=== PATIENT | female | born 1965 | race Caucasian/White ===

== ENCOUNTER → 2023-03-18 06:24 | Day surgery (SDC) | payer BC, SELFPAY | LOC: GI 06:24 | PROVIDERS: ATTENDING PHYSICIAN Internal Medicine Gastroenterology | DX: K31.89 Other diseases of stomach and duodenum (principal); K29.50 Unspecified chronic gastritis without bleeding; K31.A0 Gastric intestinal metaplasia, unspecified; K20.0 Eosinophilic esophagitis; Z09 Encounter for follow-up examination after completed treatment for conditions other than malignant neoplasm | CPT/HCPCS: 43239; 88305; 88342 ==

== ENCOUNTER → 2023-03-21 13:16 | Outpatient (REF) | payer BC, SELFPAY | LOC: RAD 13:16 | PROVIDERS: ATTENDING PHYSICIAN Internal Medicine Gastroenterology; FAMILY PHYSICIAN Family Medicine | DX: R19.7 Diarrhea, unspecified (principal) | CPT/HCPCS: 74177; Q9967 ==

== ENCOUNTER 2023-05-03 09:11 | Emergency (ER) | payer BC, SELFPAY ==
[2023-05-03 09:30] VITALS: BP 168/79
[2023-05-03 10:12] VITALS: BP 165/82
[2023-05-03 10:22] VITALS: BMI 26.0
--- NOTE | 2023-05-03 10:32 | ED.GENMED ---
History of Present Illness
General
Chief Complaint: Chest Pain
Source: patient
Exam Limitations: none
Time Seen by Provider: 05/03/23 10:10
Travel History
Have you had any contact with someone who has COVID-19?: No
Do you have any symptoms of coronavirus? Fever > 100 degrees, chills, cough, shortness of breath, sore throat, loss of taste or smell, muscle aches, or headache?: No
History of Present Illness
History of Present Illness:
57-year-old otherwise healthy female presents complaining of intermittent left-sided chest pain. At times the pain is pleuritic, worse with motion or breathing or coughing. No known injury. No recent travel or surgery. No leg swelling or calf
pain. She notes at times she feels short of breath if the pain is bad. She tried Advil without relief. No other complaints at this time
Past History
Past History
ED Past Medical History: Other (Migraines)
ED Past Surgical History: Gynecological (Endometrial ablation due to cancer cells.)
Social History
Tobacco: Non-smoker (Occasional tobacco)
Alcohol: Occasional
Drug: None
Personal:
Living: with family
Employment: Employed
Family History
Family History: Other (Gallbladder disease, coronary artery disease)
Phy Exam
Physical Exam
Physical Exam:
General: Well-appearing female no acute respiratory distress
HEENT: Normocephalic atraumatic
Heart: Regular rate and rhythm
Lungs: Clear to auscultation bilaterally no wheezing
Abdomen soft nontender nondistended no guarding rebound normal bowel sounds
Extremities: No cyanosis or edema
Musculoskeletal exam: Reproducible chest pain with motion of the left arm. No tenderness to palpation
Scores
Heart Score for Chest Pain Patients
STEMI patient?: No
History: Slightly or Non-Suspicious
ECG: Normal
Age: >45 - <65 years
Risk Factors: No Risk Factors
Troponin: </= Normal Limit
Heart Score for Chest Pain Patients: 1
Heart Score Risk: 2.5% MACE over next 6 weeks
Course
Orders/Labs/Results
Orders:
Orders
05/03/23 09:22
Electrocardiogram (*1) Urgent
Reason for Study: Chest Pain
EKG- Treatment ONCE
05/03/23 10:18
CR Chest - 2 Views Urgent
Comment:
Reason For Exam: chest pain
05/03/23 10:25
Complete Blood Count/With Diff Urgent
Comprehensive Metabolic Panel Urgent
D-Dimer Urgent
Troponin I Urgent
05/03/23 11:34
CT Chest Pe Study Urgent
Comment:
Reason For Exam: left chest wall pain,
05/03/23 12:04
Ketorolac [Toradol] 15 mg IV NOW STA
Abnormal Lab Results
05/03/23
10:25
Lymphocytes % 19.5 L %
(20.5-51.1)
D-Dimer 0.62 H ug/mlFEU
(0.00-0.50)
Chloride 108 H mmol/L
(98-107)
Creatinine 0.5 L mg/dL
(0.6-1.0)
Glucose 107 H mg/dl
(70-99)
05/03/23 10:25
05/03/23 10:25
Vital Signs
Initial and Last Documented VS:
Initial Vital Signs
Temp Pulse Resp BP Pulse Ox
98.1 F 76 20 168/79 97
05/03/23 09:30 05/03/23 09:30 05/03/23 09:30 05/03/23 09:30 05/03/23 09:30
Last Documented Vital Signs
Temp Pulse Resp BP Pulse Ox
98.1 F 57 21 142/66 97
05/03/23 09:30 05/03/23 13:30 05/03/23 12:00 05/03/23 13:00 05/03/23 09:30
MDM/Problems Addressed
Differential Diagnosis Includes:
Chest pain. Consider ACS versus PE. Given reproduction of pain with motion or coughing suspect possible chest wall discomfort. Will check cardiac enzymes including D-dimer. X-ray pending.
*Critical Care Note
Total Time (30-74mins, 75-104mins- exclusive of procedures): Not Applicable
Update Note
Update Note:
Workup here demonstrates normal chest x-ray but D-dimer was slightly elevated. Given the pleuritic component of the pain CT of the chest was ordered which is negative for PE but does show nondisplaced left anterior lateral rib fracture on the third
rib. This would explain her pain. Will prescribe a muscle relaxer for her. Return precautions were given stable for discharge
ED Attending Note
-
Portions of this chart may have been created with voice recognition software.� Occasional wrong word or��sound alike� substitutions may have occurred due to the inherent limitations of voice recognition software.
Discharge Plan
Departure
Patient Disposition: Home (Routine Discharge)
Date of Disposition: 05/03/23
Time of Disposition: 14:11
Patient with high blood pressure during this ER visit?: No
Discharge Problem:
Fracture, rib
Prescriptions:
New
cyclobenzaprine 10 mg tablet
10 mg PO TID PRN (Reason: muscle spasm) Qty: 10 0RF
No Action
cyanocobalamin (vitamin B-12) 1,000 MCG tablet
1,000 mcg PO DAILY
vitamin E (dl, acetate) 400 UNITS capsule
400 units PO DAILY
omeprazole 40 MG capsule,delayed release(DR/EC)
40 mg PO BID
Vitamin D
1 tab PO DAILY
promethazine 25 mg tablet
25 mg PO QID PRN (Reason: nausea and vomiting) Qty: 10 0RF
Referrals:
Aleksandar Rojas, [Family Provider] -
Activity Restrictions/Additional Instructions:
Continue with ibuprofen 600 mg every 6 or 8 hours. Use Tylenol in between doses if needed. Use muscle relaxer as needed for spasm. Return here for increasing pain shortness of breath fever otherwise follow-up with family doctor. Avoid heavy
lifting or twisting activity
Interventions
Interventions:
*Risk Screen - Suicide Last Done: 05/03/23 10:22
*General Assessment Last Done: 05/03/23 10:22
*Neglect/Abuse Screening Last Done: 05/03/23 10:22
ED- Fall Risk Assessment Last Done: 05/03/23 10:22
*ED COVID-19 Vaccine History Last Done: 05/03/23 10:16
ED- Cardiac Assessment Last Done: 05/03/23 10:22
[2023-05-03 10:50] LABS: % Basophils 0.5 % (0-2); % Eosinophils 2.1 % (0-6); % Immature Granulocytes 0.4 % (0-0.5); % Lymphocytes 19.5 % (20.5-51.1); % Monocytes 6.5 % (1.7-9.3); Absolute Eosinophils 0.2 10^3/uL (0-0.7); Absolute Lymphocytes 1.5 10^3/uL (1.2-3.4); Absolute Monocytes 0.5 10^3/uL (0.1-0.6); Absolute Neutrophils 5.5 10^3/uL (1.4-6.5); Hematocrit 41.7 % (37.0-47.0); Hemoglobin 14.1 g/dL (12.0-16.0); Mean Corp Hgb Conc. 33.8 g/dL (33.0-37.0); Mean Corpuscular Hgb 30.4 pg (27.0-31.0); Mean Corpuscular Volume 89.9 fL (81.0-99.0); Mean Platelet Volume 10.4 fL (7.4-10.4); Nucleated Red Blood Cells % 0 %; Platelet Count 232 10^3/uL (130-400); Red Blood Cell Count 4.64 10^6/uL (4.20-5.40); Red Cell Dist. Width 12.3 % (11.5-14.5); White Blood Cell Count 7.8 10^3/uL (4.8-10.8)
[2023-05-03 10:58] LABS: D-Dimer 0.62 ug/mlFEU (0.00-0.50)
[2023-05-03 11:00] LABS: ALT (SGPT) 18 U/L (0-35); AST (SGOT) 22 U/L (14-36); Albumin 4.1 g/dl (3.5-5.0); Alkaline Phosphatase 113 U/L (38-126); Blood Urea Nitrogen 12 mg/dl (7-17); Calcium 9.5 mg/dl (8.4-10.2); Carbon Dioxide 25 mmol/L (22-30); Chloride 108 mmol/L (98-107); Estimated Creatinine Clearance 95 ml/min; Glucose 107 mg/dl (70-99); Potassium 4.2 mmol/L (3.5-5.1); Sodium 135 mmol/L (135-145); Total Bilirubin 0.8 mg/dl (0.2-1.3); Total Protein 6.9 g/dl (6.3-8.2); eGFR > 60.00
[2023-05-03 11:11] LABS: Troponin I < 0.012 ng/ml
[2023-05-03 11:31] VITALS: BP 160/80
[2023-05-03 12:00] VITALS: BP 140/67
[2023-05-03] MEDS: TORADOL 15 MG IV (12:22)
[2023-05-03 13:00] VITALS: BP 142/66
== END 2023-05-03 14:46 | disposition home or self-care (01) ==
LOC: EMR 09:11
PROVIDERS: Physician Assistant; EMERGENCY PHYSICIAN Emergency Medicine; FAMILY PHYSICIAN Family Medicine
DX: S22.32XA Fracture of one rib, left side, initial encounter for closed fracture (principal); X58.XXXA Exposure to other specified factors, initial encounter
CPT/HCPCS: 99285; 96374; 71046; 71275; 80053; 84484; 85025; 85379; 93005; Q9967

== ENCOUNTER 2024-01-23 19:57 | Observation (INO) | payer BC, SELFPAY ==
--- NOTE | 2024-01-23 11:35 | ED.GENMED ---
ED Provider Triage
<Ritika Argueta NP - Last Filed: 01/23/24 11:47>
-
Patient seen by provider in Triage?: Seen in Triage
Attestation: A medical screening examination has been initiated by a qualified medical provider. Based on the assessment performed at this time, it has been determined that an emergent medical condition may exist and the patient has been informed
that further medical evaluation and possible additional diagnostic testing may be needed.
HPI: 58-year-old female sent here at recommendation of her PCP Dr. Rojas. 'I am sluggish, alfredo feel off.' Had episode of colorful flashing lights both eyes at 9 a.m. lasting 30 minutes. With residualy 'minimum pain' in the back of her head.
Took BP and was 168/73. Has similar flashings for only a second with previous migraine 2 yrs ago. She states her head feels 'Off', had visual changes (seeing colors), fatigue, back of head painful, head feels heavy. Feels nauseous, no vomiting.
Denies weakness, numbness in extremities
No recent trauma/fall.
GENERAL: Alert , in no apparent distress
EYE: No visual abnormalities.
NECK: Trachea midline
ENT: No visible abnormalities.
LUNGS: No acute respiratory distress
NEUROLOGICAL: Alert and oriented
SKIN: Skin intact. No visible changes.
MUSCULOSKELETAL: Moving extremities normally
PSYCH: Normal and appropriate interaction.
This is a medical evaluation conducted in person to initiate diagnostic evaluation and provide initial therapeutics. Please see further documentation by the treating clinician.
History of Present Illness
<Ritika Argueta NP - Last Filed: 01/23/24 11:47>
General
Chief Complaint: Visual Problem
Time Seen by Provider: 01/23/24 13:17
<Nova Giles PA-C - Last Filed: 01/24/24 13:05>
General
Source: patient
Exam Limitations: none
Nursing documentation reviewed up to this point in time: agreed with
History of Present Illness
History of Present Illness:
58 y/o F
h/o migraines previously
usually has photophobia, nausea/vomitig and treats with motrin
here with vision changes:
flashing colorful lights both eyes lasting 30 minutes while pt was at rest, not under any stress or physical activity
followed by occipital dull headache / which she still has, which never became worst headache of life
but she says she feels not herself, and cannot quite explain why
she has had al ittle lightheadedness
no fever, chills, neck pain, neck manipulation, weakness, numbness, slurred speech, confusion, cp, sob
she has not tried anything for her headache
Past History
<Ritika Argueta ACCOUNT MANAGEMENT ASSISTANT - Last Filed: 01/23/24 11:47>
Past History
ED Past Medical History: Other (Migraines)
ED Past Surgical History: Gynecological (Endometrial ablation due to cancer cells.)
Social History
Tobacco: Non-smoker (Occasional tobacco)
Alcohol: Occasional
Drug: None
Personal:
Living: with family
Employment: Employed
Family History
Family History: Other (Gallbladder disease, coronary artery disease)
Review of Systems
<Nova Giles PA-C - Last Filed: 01/24/24 13:05>
Review of Systems
Allergies reviewed?: Yes
Phy Exam
<Nova Giles PA-C - Last Filed: 01/24/24 13:05>
Physical Exam
Physical Exam:
GENERAL: Alert , in no apparent distress
HEAD: NCAT
EYE: pupils equal and reactive, no nystagmus, no photophobia
NECK: Supple,full rom, nontender
ENT: o/p clr, mmm.
CARDIAC: Regular rate and rhythm . no edema
LUNGS: Clear breath sounds bilaterally, no acute respiratory distress, no wheezes/rales/rhonchi
ABDOMEN: Soft, without focal tenderness, no r/g, no cvat
NEUROLOGICAL: Alert and orientedx 4, cn intact, no facial asymmetry, 5/5 strength in UE/LE, sensation intact, romberg neg, ambulates without assistance, neg pronator drift
reporting double vision with downward gaze
SKIN: Warm and dry, skin intact.
MUSCULOSKELETAL: No edema, well perfused.
PSYCH: Normal and appropriate interaction.
Course
<Ritika Argueta, ACCOUNT MANAGEMENT ASSISTANT - Last Filed: 01/23/24 11:47>
Orders/Labs/Results
Orders:
Orders
01/23/24 11:42
CT Head W/o Iv Contrast Urgent
Comment:
Reason For Exam: head feel 'off' flashing lights in vision
01/23/24 11:52
Complete Blood Count/With Diff Urgent
01/23/24 13:35
Diphenhydramine [Benadryl] 25 mg IV NOW STA
Metoclopramide [Reglan] 10 mg IV NOW STA
01/23/24 13:57
NEUROLOGY CONSULT Urgent
Consulting Provider: Lexi Minor
Was physician already notified: Yes
01/23/24 14:37
C-Reactive Protein Urgent
Comment: ADD ON
Comprehensive Metabolic Panel Urgent
Magnesium Urgent
Comment: ADD ON
TSH Reflex To Free T4 Urgent
Comment: ADD ON
01/23/24 Dinner
Regular
At Your Request: Full Participation
Does patient need a safe tray?: No
01/23/24 18:03
Lorazepam [Ativan] 2 mg PO ONCE PRN PRN
01/23/24 18:23
Add On- LAB Routine
Tests Added?: CPR, ESR, Magnesium, TSH reflex to free T4
01/23/24 19:36
Admit/Transfer Patient As Directed
Co-Sign Provider:
Level of Care: Observation services
Assign to:: Telemetry
Physician / Group: low scherer
Diagnosis: diplopia with h/a an aura concern migraine h/a vs cva/Tia
Reason for Telemetry: CVA/TIA
Date to Stop Telemetry: 01/26/24
Time to Stop Telemetry: 11:00
Reason for Hospitalization: diplopia with h/a an aura concern migraine h/a vs cva/Tia
Code Status As Directed
Resuscitation Status: Full Code
01/23/24 19:38
PRN Pain Medication Management As Directed
May give lesser potent ordered pain med per pt: Yes
preference::
Protocol:: Medication orders for pain may be administered in a
manner that supports deferring to patient preference
when the pt is:
- Requesting an ordered lesser potent pain medication.
Least to most potent pain medications are defined
as: acetaminophen < NSAID < tramadol < opioids
(morphine, oxycodone, hydromorphone).
- Requesting a lesser dose of the same medication IF
ORDERED.
- Requesting a less intrusive route of administration
if both routes are prescribed by the provider (PO <
IV).
01/23/24 21:08
Acetaminophen [Tylenol] 650 mg PO Q4HPRN PRN
Diphenhydramine [Benadryl] 25 mg IV Q4HPRN PRN
Ondansetron Injectable [Zofran] 4 mg IV Q6HPRN PRN
01/23/24 21:08
Activity As Directed
Activity Level: As Tolerated
Pneumatic Compression Sleeves As Directed
Type: Knee high
Vital Signs As Directed
Frequency: Per unit guidelines
Ot Eval And Treat Routine
Pt Eval And Treat Routine
Activity Level: As Tolerated
DX Deep Vein Thrombosis Video Routine
01/24/24 06:27
Cardiovascular Evaluation IN AM
01/24/24 07:40
MR Brain Without Contrast Routine
Reason For Exam: diplopia
OK for patient to be off Cardiac Monitoring for MRI: No
Recent pill cam endoscopy?: No
01/24/24 08:00
Cholecalciferol (Vitamin D3) [VITAMIN D3 (cholecalciferol)] 125 mcg PO DAILY
Cyanocobalamin [Vitamin B-12] 1,000 mcg PO DAILY
Pantoprazole [Protonix] 40 mg PO DAILY
01/26/24 11:00
DC Protocol for Telemetry ONCE
01/23/24 11:52
01/23/24 14:37
Vital Signs
Initial and Last Documented VS:
Initial Vital Signs
Temp Pulse Resp BP Pulse Ox
36.7 C 69 20 165/95 98
01/23/24 11:37 01/23/24 11:37 01/23/24 11:37 01/23/24 11:37 01/23/24 11:37
Last Documented Vital Signs
Temp Pulse Resp BP Pulse Ox
36.6 C 68 18 116/66 94
01/24/24 11:47 01/24/24 11:47 01/24/24 11:47 01/24/24 11:47 01/24/24 11:47
<Nova Giles PA-C - Last Filed: 01/24/24 13:05>
Orders/Labs/Results
Orders:
Orders
01/23/24 11:42
CT Head W/o Iv Contrast Urgent
Comment:
Reason For Exam: head feel 'off' flashing lights in vision
01/23/24 11:52
Complete Blood Count/With Diff Urgent
01/23/24 13:35
Diphenhydramine [Benadryl] 25 mg IV NOW STA
Metoclopramide [Reglan] 10 mg IV NOW STA
01/23/24 13:57
NEUROLOGY CONSULT Urgent
Consulting Provider: Lexi Minor
Was physician already notified: Yes
01/23/24 14:37
C-Reactive Protein Urgent
Comment: ADD ON
Comprehensive Metabolic Panel Urgent
Magnesium Urgent
Comment: ADD ON
TSH Reflex To Free T4 Urgent
Comment: ADD ON
01/23/24 Dinner
Regular
At Your Request: Full Participation
Does patient need a safe tray?: No
01/23/24 18:03
Lorazepam [Ativan] 2 mg PO ONCE PRN PRN
01/23/24 18:23
Add On- LAB Routine
Tests Added?: CPR, ESR, Magnesium, TSH reflex to free T4
01/23/24 19:36
Admit/Transfer Patient As Directed
Co-Sign Provider:
Level of Care: Observation services
Assign to:: Telemetry
Physician / Group: low scherer
Diagnosis: diplopia with h/a an aura concern migraine h/a vs cva/Tia
Reason for Telemetry: CVA/TIA
Date to Stop Telemetry: 01/26/24
Time to Stop Telemetry: 11:00
Reason for Hospitalization: diplopia with h/a an aura concern migraine h/a vs cva/Tia
Code Status As Directed
Resuscitation Status: Full Code
01/23/24 19:38
PRN Pain Medication Management As Directed
May give lesser potent ordered pain med per pt: Yes
preference::
Protocol:: Medication orders for pain may be administered in a
manner that supports deferring to patient preference
when the pt is:
- Requesting an ordered lesser potent pain medication.
Least to most potent pain medications are defined
as: acetaminophen < NSAID < tramadol < opioids
(morphine, oxycodone, hydromorphone).
- Requesting a lesser dose of the same medication IF
ORDERED.
- Requesting a less intrusive route of administration
if both routes are prescribed by the provider (PO <
IV).
01/23/24 21:08
Acetaminophen [Tylenol] 650 mg PO Q4HPRN PRN
Diphenhydramine [Benadryl] 25 mg IV Q4HPRN PRN
Ondansetron Injectable [Zofran] 4 mg IV Q6HPRN PRN
01/23/24 21:08
Activity As Directed
Activity Level: As Tolerated
Pneumatic Compression Sleeves As Directed
Type: Knee high
Vital Signs As Directed
Frequency: Per unit guidelines
Ot Eval And Treat Routine
Pt Eval And Treat Routine
Activity Level: As Tolerated
DX Deep Vein Thrombosis Video Routine
01/24/24 06:27
Cardiovascular Evaluation IN AM
01/24/24 07:40
MR Brain Without Contrast Routine
Reason For Exam: diplopia
OK for patient to be off Cardiac Monitoring for MRI: No
Recent pill cam endoscopy?: No
01/24/24 08:00
Cholecalciferol (Vitamin D3) [VITAMIN D3 (cholecalciferol)] 125 mcg PO DAILY
Cyanocobalamin [Vitamin B-12] 1,000 mcg PO DAILY
Pantoprazole [Protonix] 40 mg PO DAILY
01/26/24 11:00
DC Protocol for Telemetry ONCE
01/23/24 11:52
01/23/24 14:37
Vital Signs
Initial and Last Documented VS:
Initial Vital Signs
Temp Pulse Resp BP Pulse Ox
36.7 C 69 20 165/95 98
01/23/24 11:37 01/23/24 11:37 01/23/24 11:37 01/23/24 11:37 01/23/24 11:37
Last Documented Vital Signs
Temp Pulse Resp BP Pulse Ox
36.6 C 68 18 116/66 94
01/24/24 11:47 01/24/24 11:47 01/24/24 11:47 01/24/24 11:47 01/24/24 11:47
<Nova Giles PA-C - Last Filed: 01/24/24 13:05>
MDM/Problems Addressed
Differential Diagnosis Includes:
stroke, occular migraine
MDM/Problems Addressed:
sumit avalos 58 y/o F
h/o reported migraines in the past
usually has photophobia, nausea/vomitig and treats with motrin
today had what sounds like scintillating scotoma at 9 am lasting about 30 minutes, flashing colorful lights both eyes
followed by occipital dull headache 03/19 which she still has
but she says she feels not herself
she reported her vision was back to normal but on my exam when i was checking EOMS and visual lujan she said she saw double when both eyes open in downward gaze; there is no reported field cut;
seems a little odd,
she had noncon head ct that was neg
givne reglan/benadryl which relieved the pain
seen by neuro and d/w ed attending
neurologist recommended admission for reported symptoms of trochlear palsy;
and will need MRI
<Nova Giles PA-C - Last Filed: 01/24/24 13:05>
*Critical Care Note
Total Time (30-74mins, 75-104mins- exclusive of procedures): Not Applicable
ED Attending Note
<Ritika Argueta ACCOUNT MANAGEMENT ASSISTANT - Last Filed: 01/23/24 11:47>
-
Portions of this chart may have been created with voice recognition software.� Occasional wrong word or��sound alike� substitutions may have occurred due to the inherent limitations of voice recognition software.
Discharge Plan
Departure
Patient Disposition: Admit
Date of Disposition: 01/23/24
Time of Disposition: 17:05
Admit to: Telemetry
Presentation/result/management discussed w/ accepting MD/DO: Hospitalist
Condition: Fair
Covid-19: Not Applicable
Discharge Problem:
Acute trochlear nerve palsy, Diplopia
Interventions
Interventions:
*Risk Screen - Suicide Last Done: 01/23/24 22:16
*General Assessment Last Done: 01/23/24 11:37
*Neglect/Abuse Screening Last Done: 01/23/24 13:52
*ED COVID-19 Vaccine History Last Done: 01/23/24 22:16
*Nursing Disposition Last Done: 01/23/24 21:18
ED- Neurological Assessment Last Done: 01/23/24 13:53
ED-EENT Assessment Last Done: 01/23/24 13:53
ED Swallowing Screen Last Done: 01/23/24 17:10
Discharge Date and Time
Discharge Date/Time: 01/23/24 21:19
[2024-01-23 11:37] VITALS: BP 165/95
[2024-01-23] MEDS: BENADRYL 25 MG IV (13:48)
[2024-01-23] MEDS: REGLAN 10 MG IV (13:48)
[2024-01-23 14:05] LABS: % Basophils 0.3 % (0-2); % Eosinophils 3.2 % (0-6); % Immature Granulocytes 0.3 % (0-0.5); % Lymphocytes 33.9 % (20.5-51.1); % Monocytes 8.5 % (1.7-9.3); % Neutrophils 53.8 % (42.2-75.2); Absolute Eosinophils 0.2 10^3/uL (0-0.7); Absolute Lymphocytes 2.2 10^3/uL (1.2-3.4); Absolute Monocytes 0.6 10^3/uL (0.1-0.6); Absolute Neutrophils 3.5 10^3/uL (1.4-6.5); Hematocrit 42.9 % (37.0-47.0); Hemoglobin 14.4 g/dL (12.0-16.0); Mean Corp Hgb Conc. 33.6 g/dL (33.0-37.0); Mean Corpuscular Hgb 30.5 pg (27.0-31.0); Mean Corpuscular Volume 90.9 fL (81.0-99.0); Nucleated Red Blood Cells % 0 %; Red Blood Cell Count 4.72 10^6/uL (4.20-5.40); Red Cell Dist. Width 12.3 % (11.5-14.5); White Blood Cell Count 6.6 10^3/uL (4.8-10.8)
[2024-01-23 15:06] LABS: ALT (SGPT) 27 U/L (0-35); AST (SGOT) 26 U/L (14-36); Albumin 3.8 g/dl (3.5-5.0); Alkaline Phosphatase 103 U/L (38-126); Blood Urea Nitrogen 8 mg/dl (7-17); Calcium 9.2 mg/dl (8.4-10.2); Carbon Dioxide 29 mmol/L (22-30); Chloride 106 mmol/L (98-107); Glucose 92 mg/dl (70-99); Potassium 3.9 mmol/L (3.5-5.1); Sodium 139 mmol/L (135-145); Total Bilirubin 0.8 mg/dl (0.2-1.3); Total Protein 6.3 g/dl (6.3-8.2); eGFR > 60.00
[2024-01-23 15:18] VITALS: BP 137/68
--- NOTE | 2024-01-23 16:11 | CON.NEURO ---
Consultation
Order
Date of Consultation: 01/23/24
Requesting Provider: Nova Giles PA-C
Reason for Consult: Diplopia
Neurology Consultation Note.
HPI: This is a 58-year-old RH woman who presented to [facility] on 01/23/2024 with visual symptoms
According to the patient she developed painless visual obscuration inform of zigzagging lines and colors, lasted for half an hour before she developed bioccipital nonpositional headache today. Liyah endorses intermittent painless binocular
vertical diplopia provoked by looking down since the episode. No reports of motor, sensory symptoms, vertigo or abnormal movements.
She reports feeling 'off' during this episode. Recently started to discontinued medications.
Patient has a history of episodic bifrontal headache with associated photophobia phonophobia, nausea and emesis lasting for hours up to 2 days managed with Tylenol, Advil and Zofran.
ER VS: 165/95, 69, afebrile
EKG: Pending.
PDMP:none
Labs: Normal WBCs, sodium, creatinine, glucose.
CT head wo contrast�bifrontal atrophy
PMH: astigmatism, history of meningitis(2008, was treated before LP), CSF leak, eosinophilic esophagitis, C5/[id number] D and B12 deficiency.
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
FH: Mother�epilepsy
All: Penicillins, cephalosporins, fentanyl, prednisone,
ROS:Constitutional: Negative. Negative for chills, fever and unexpected weight change.
HENT: Negative for ear pain, hearing loss, tinnitus and trouble swallowing.
Eyes: Positive for diplopia
Respiratory: Negative for cough, choking and shortness of breath.
Cardiovascular: Negative for chest pain, palpitations and leg swelling.
Gastrointestinal: Negative for abdominal pain and vomiting.
Endocrine: Negative. Negative for cold intolerance.
Genitourinary: Positive for nocturia
Musculoskeletal: Negative for back pain, gait problem, neck pain and neck stiffness.
Skin: Negative for rash.
Allergic/Immunologic: Negative. Negative for immunocompromised state.
Neurological: Positive for intermittent headaches
Psychiatric/Behavioral: Negative for behavioral problems, confusion and hallucinations.
General: Well developed. In no acute distress.
Cardio: Regular rate and rhythm without murmur. Extremities are without cyanosis or edema.
Neuro:
Mental Status: Alert, oriented to person, place, and date. Expressive aphasia. Impaired delayed recall. Good fund of knowledge. Follows complex requests across the midline. Comprehension, naming, and repetition intact.
Cranial Nerves: Pupils are equally round and reactive to light. EOMs full. Diplopia on downward word gaze. Visual lujan full to confrontation. No ptosis. No nystagmus. V1-V3 intact to light touch and pinprick bilaterally, symmetric. Face
symmetric. Normal hearing AU. The palate elevated well. SCMs and traps 5/5. Tongue midline. No dysarthria.
Motor: Normal bulk and tone. No pronator or arm drift. Strength 5/5 throughout. No clonus.
Reflexes: 2+ throughout the upper extremities and knees. Plantar responses flexor bilaterally. Negative grasp.
Sensory: Normal vibration at the toes
Coordination: No dysmetria or tremor.
Gait: deferred
Assessment and Plan:
I. Clinical trochlear nerve palsy
II. Bifrontal brain atrophy
III. Encephalopathy
-Telemetry monitoring
-Please check ESR, CRP, magnesium, TSH, free T4, ua tox
-brain MRI without dorie with sedation
-Ophthalmology consult
-Outpatient neuropsychological evaluation
I personally reviewed all radiology and labs along with past medical records pertinent to current medical problems. Total time spent in patient care is 60 minutes.
Thank you for allowing us to participate in the care of this patient. We will continue to follow. Please do not hesitate to contact us with any questions or concerns.
Subjective/Objective
Subjective Data
Date of Service: January 23, 2024
Objective Data
Vital Signs
Temp Pulse Resp BP Pulse Ox
36.7 C 65 18 137/68 94
01/23/24 11:37 01/23/24 15:18 01/23/24 15:18 01/23/24 15:18 01/23/24 15:18
Lab Results
01/23/24 11:52
01/23/24 14:37
Sodium 139 mmol/L (135-145) 01/23/24 14:37
Potassium 3.9 mmol/L (3.5-5.1) 01/23/24 14:37
BUN 8 mg/dl (7-17) 01/23/24 14:37
Glucose 92 mg/dl (70-99) 01/23/24 14:37
Calcium 9.2 mg/dl (8.4-10.2) 01/23/24 14:37
Patient Allergies
Cephalosporins Allergy (Severe, Verified 01/23/24 11:37)
Shortness of Breath
penicillin G Allergy (Severe, Verified 01/23/24 11:37)
Shortness of Breath
Penicillins Allergy (Severe, Verified 01/23/24 11:37)
Shortness of Breath
Tetanus Vaccines and Toxoid Allergy (Severe, Verified 01/23/24 11:37)
Swelling
prednisone Allergy (Intermediate, Verified 01/23/24 11:37)
Swelling
fentanyl Allergy (Mild, Verified 01/23/24 11:37)
Unknown
Medications
-
Home Medications
�Medication �Instructions �Recorded
cyanocobalamin (vitamin B-12) 1,000 mcg PO DAILY 12/21/19
1,000 mcg tablet
vitamin E (dl, acetate) 180 mg 400 units PO DAILY 12/21/19
(400 unit) capsule
Vitamin D 1 tab PO DAILY 03/18/21
omeprazole 40 mg capsule,delayed 40 mg PO BID 03/18/21
release
promethazine 25 mg tablet 25 mg PO QID PRN nausea and 01/17/22
vomiting #10 tabs
cyclobenzaprine 10 mg tablet 10 mg PO TID PRN muscle spasm #10 05/03/23
tabs
Vital Signs and Labs
-
Vital Signs and Labs:
Vital Signs
Temp Pulse Resp BP Pulse Ox
36.7 C 65 18 137/68 94
01/23/24 11:37 01/23/24 15:18 01/23/24 15:18 01/23/24 15:18 01/23/24 15:18
Lab Results
01/23/24 11:52
01/23/24 14:37
Sodium 139 mmol/L (135-145) 01/23/24 14:37
Potassium 3.9 mmol/L (3.5-5.1) 01/23/24 14:37
BUN 8 mg/dl (7-17) 01/23/24 14:37
Glucose 92 mg/dl (70-99) 01/23/24 14:37
Calcium 9.2 mg/dl (8.4-10.2) 01/23/24 14:37
Home Medications
-
Home Medications
cyanocobalamin (vitamin B-12) 1,000 mcg tablet 1,000 mcg PO DAILY 12/21/19
cholecalciferol (vitamin D3) 125 mcg (5,000 unit) tablet (Vitamin D3) 125 mcg PO DAILY 03/18/21
omeprazole 20 mg capsule,delayed release 20 mg PO DAILY 01/23/24
ondansetron 4 mg disintegrating tablet 4 mg PO Q8HPRN PRN nausea 01/23/24
--- NOTE | 2024-01-23 18:48 | HPS.HSE ---
Family Physician
-
Family Physician: Aleksandar Rojas
Chief Complaint
-
Diplopia, prior prodrome of bright colors, zigzag pattern both eyes
History of Present Illness
58-year-old female complaining of prodrome 30 minutes of reported visual zigzags both eyes by bright rainbow like colors followed by occipital headache today but now with reported diplopia on downward gaze. She has no visual field cuts on exam.
She reports she gets headaches only 3-4 times a year. She typically gets nauseous and has Zofran that she uses for them. There is no family history of migraines however her mother did have history of epilepsy in her early 30s. Patient denies any
recent illness, fever, chills, sore throat, chest pain, palpitations, abdominal pain, nausea, vomiting, diarrhea, urinary symptoms. Her current visual symptoms are back to normal. She states they lasted approximately 1 hour her posterior headache
is 1 out of 10 and at max it was only 2 out of 10. She has no neurological deficits. She was seen by neurology who has concern for ocular migraine but believes she has a trochlear nerve palsy and would like MRI of brain without gadolinium.
The patient has past medical history of astigmatism patient unsure which eye, viral meningitis 2009 CSF leak s/p lumbar puncture for meningitis, headaches , former smoker as a teen, eosinophilic esophagitis, C5/C6 neck issues, vitamin D and B12
deficiency
Medical History
Past Medical History
Past Medical History: Reports Other
Additional Past Medical History:
astigmatism patient unsure which eye
viral meningitis 2009 CSF leak s/p lumbar puncture for meningitis
headaches 3-4 times a year
former smoker as a teen
eosinophilic esophagitis
C5/C6 neck issues
vitamin D deficiency
B12 deficiency
Claustrophobia
Past Surgical History: Reports Other
Additional Past Surgical History:
Uterine ablation
LEEP
Back surgery
Social History
Tobacco: Former Smoker (As a teenager)
Alcohol: Occasional (Once every 2 months)
Drug: None
Personal:
Living: With Family ()
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
Family History
Family History: Other (Mother history of epilepsy early 30s age 80 history of CVA and colon cancer, father gastric cancer age 30s, sister history of obesity and CHF, brother history of CHF, early CAD NM x 2 age 50, 1 brother NM age
59)
Allergies / Home Medications
Allergies reflects when Allergies were last updated in [employer].
Home Medications with original date entered in [employer]
Allergy/Medication List:
Allergies
Allergy/AdvReac Type Severity Reaction Status Date / Time
Cephalosporins Allergy Severe Shortness Verified 01/23/24 11:37
of Breath
penicillin G Allergy Severe Shortness Verified 01/23/24 11:37
of Breath
Penicillins Allergy Severe Shortness Verified 01/23/24 11:37
of Breath
Tetanus Vaccines and Toxoid Allergy Severe Swelling Verified 01/23/24 11:37
prednisone Allergy Intermediate Swelling Verified 01/23/24 11:37
fentanyl Allergy Mild Unknown Verified 01/23/24 11:37
Home Medications
cyanocobalamin (vitamin B-12) 1,000 mcg tablet 1,000 mcg PO DAILY 12/21/19
cholecalciferol (vitamin D3) 125 mcg (5,000 unit) tablet (Vitamin D3) 125 mcg PO DAILY 03/18/21
omeprazole 20 mg capsule,delayed release 20 mg PO DAILY 01/23/24
ondansetron 4 mg disintegrating tablet 4 mg PO Q8HPRN PRN nausea 01/23/24
Review of Systems
-
History Source: Patient and Family ( at bedside)
A 12 point ROS was completed and negative except as noted: Yes
Constitutional: Denies Fever, Fatigue or Chills
EENT: Reports Other (Reported rainbow like visual field with zigzags bright colors and diplopia when looking downward followed 30 minutes later by occipital headache); Denies Sore Throat or Runny Nose
Respiratory: Denies Cough, Hemoptysis or Trouble Breathing
Cardiac: Denies Chest Pain, Diaphoresis, Palpitations or Syncope
Abdomen/GI: Denies Abdominal Pain, Nausea, Vomiting, Diarrhea, Constipated, Bloody Stools or Black Stools
: Denies Dysuria, Frequency, Flank Pain, Incontinence, Difficulty Voiding or Urgency
Musculoskeletal: Denies Joint Pain or Edema
Skin: Denies Itching or Rash
Neurological: Reports Headache (Occipital); Denies Dizzy, Weakness or Numbness
Endocrine: Reports No Symptoms
Hematologic/Lymphatic: Reports No Symptoms
Psych: Reports Calm
Physical Exam
Vital Signs
Vital Signs
Temp Pulse Resp BP Pulse Ox
98.1 F 65 18 137/68 94
01/23/24 11:37 01/23/24 15:18 01/23/24 15:18 01/23/24 15:18 01/23/24 15:18
Physical Exam
General: Comfortable and Conversant; No Pain, Fever or Chills
HEENT: NormoCephalic, Anicteric, PERRLA, [place] Conjunctivae, No Ptosis and Other (EOMs intact except right eye nerve palsy when looking left turns in toward inner canthus, patient reports double vision with downward looking only)
Respiratory: Clear; No Wheezes, Rales or Rhonchi
Cardiac: S1/S2; No Regular Rhythm, Murmur, Rub, Gallop, Peripheral Edema or JVD
GI: Soft, Non Tender, Non Distended and Normal Bowel Sounds
Rectal: Deferred by Provider
Genito-urinary: Deferred by me
Musculoskeletal: No Clubbing, No Cyanosis and No Edema
Skin: Warm and Dry; No Rash
Neuro: AO x 3, No Motor Deficits, Nonfocal/grossly intact, Cranial Nerves Intact and No Sensory Deficits; No Slurred Speech, Facial Droop, Tremors or Sedated
Psych: Calm
Laboratory Results
-
01/23/24 11:52
01/23/24 14:37
Laboratory Results
Total Bilirubin 0.8 mg/dl (0.2-1.3) 01/23/24 14:37
AST 26 U/L (14-36) 01/23/24 14:37
ALT 27 U/L (0-35) 01/23/24 14:37
Alkaline Phosphatase 103 U/L (38-126) 01/23/24 14:37
Data Reviewed
-
CT Scan: Report Reviewed by me
Lab Data: Labs Reviewed by me
Impression/Plan
-
Impression/plan:
Observation telemetry
#Earlier occipital headache now diplopia concern for ocular migraine versus CVA TIA
#Hx of headaches 3-4 times a year
-Consult neurology was seen by Dr. Minor at bedside
-Check ESR, CRP, mag, TSH with free T4 reflex, urinalysis, UDS
-Ophthalmology consult-recommend outpatient follow-up
-Brain MRI without gadolinium-patient will require p.o. Ativan due to claustrophobia order placed by neurology
-Recommend outpatient neuropsych evaluation
-Tylenol as needed headache
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
#Chronic astigmatism-patient unsure which eye
-She wears glasses for readers
# Former smoker as teen
#Eosinophilic esophagitis
-Continue omeprazole 20 mg daily
#Vitamin D deficiency
-Continue vitamin D3 125 mcg p.o. daily
#B12 deficiency
-Continue vitamin B12 1000 mcg p.o. daily
Other PMH:
Viral meningitis 2008 with post lumbar puncture CSF leak
C5/C6 neck pain
DVT prophylaxis
SCDs
Full code
[2024-01-23 19:28] VITALS: BP 150/73
[2024-01-23 19:36] VITALS: BMI 28.0
[2024-01-23 20:01] LABS: Magnesium 2.2 mg/dl (1.6-2.3)
--- NOTE | 2024-01-23 20:16 | W.PN.UPDATE ---
Update Note
Progress Note Update
This is an addendum to the H&P written by Betina Falk on 01/23/2024. Patient seen and examined independently with IMMIGRATION LAW SPECIALIST.
58-year-old female past medical history of viral meningitis in 2008 CSF leak, astigmatism, eosinophilic esophagitis, C5/C6 disc problems, vitamin D deficiency, B12 deficiency, presenting with visual scotoma bilaterally followed by occipital headache
today followed by diplopia on downward gaze. Scotomas have resolved, headache is minimal patient continues to have double vision when she gazes downward.
Patient was noted to have superior deviation of the right eye with medial gaze consistent with cochlear nerve palsy of right eye.
Patient also with potential migraine with aura. Check MRI brain. ESR, CRP, magnesium, TSH, UDS, urinalysis pending. Neurology consulted and following.
[2024-01-23 20:59] LABS: TSH Reflex To Free T4 3.73 uIU/ml (0.47-4.68)
[2024-01-23 21:20] VITALS: BP 147/73
[2024-01-23 21:25] VITALS: BMI 26.4
[2024-01-23 21:49] LABS: Erythrocyte Sed Rate 2 mm/hour (0-20)
--- NOTE | 2024-01-23 22:00 | PTCARENOTE ---
Pt arrived to room 414-01. Pt ambulated from stretcher to bed with standby assistance. Pt AAOx3, VSS. Pt educated to ring galvan when needing to ambulate- pt agreeable. Pt oriented to room, call galvan placed within reach. Refer to NIH stroke scale.
[2024-01-23 23:00] VITALS: BP 125/64
[2024-01-24] VITALS (8 sets, daily range): BP systolic 116–155; BP diastolic 61–76; PULSE 72
[2024-01-24] MEDS: PROTONIX 40 MG PO (08:27)
[2024-01-24] MEDS: VITAMIN D3 (cholecalciferol) 125 MCG PO (08:28)
[2024-01-24] MEDS: VITAMIN B-12 1000 MCG PO (08:28)
[2024-01-24 08:56] LABS: HDL Cholesterol 71 mg/dl; LDL Cholesterol, Calculated 134 mg/dl; Total Cholesterol 236 mg/dl (50-199); Triglyceride 156 mg/dl (10-149); Very Low Density Lipoprotein 31 mg/dl (0-30)
[2024-01-24] MEDS: ATIVAN 2 MG PO (09:34)
--- NOTE | 2024-01-24 13:24 | W.PN.HOSP.TC ---
Today's Communication/Plan
-
op optho f/u
Neuro recs
Assessment / Plan
Assessment / Plan
General: Comfortable and Conversant; No Pain, Fever or Chills
HEENT: NormoCephalic, Anicteric, , [place] Conjunctivae, No Ptosis and patient reports double vision with downward looking only)
Respiratory: Clear; No Wheezes, Rales or Rhonchi
Cardiac: S1/S2; No Regular Rhythm, Murmur, Rub, Gallop, Peripheral Edema or JVD
GI: Soft, Non Tender, Non Distended and Normal Bowel Sounds
Musculoskeletal: No Clubbing, No Cyanosis and No Edema
Skin: Warm and Dry; No Rash
Neuro: AO x 3, No Motor Deficits, Nonfocal/grossly intact, Cranial Nerves Intact and No Sensory Deficits; No Slurred Speech, Facial Droop, Tremors or Sedated
Psych: Calm
#Earlier occipital headache now diplopia concern for ocular migraine
#Hx of headaches 3-4 times a year
#Clinical trochlear nerve palsy suspected
-UA negative. Elevated cholesterol. TSH normal. Urine normal. sed rate normal. Mag normal. CRP normal
-Ophthalmology consult-recommend outpatient follow-up
-Brain MRI without gadolinium-patient will require p.o. Ativan due to claustrophobia order placed by neurology
-Recommend outpatient neuropsych evaluation
-Tylenol as needed headache
-MRI brain with no evidence of acute intracranial abnormality. Paranasal disease as described.
-probably symptomatic management.
-
#Chronic astigmatism-patient unsure which eye
-She wears glasses for readers
# Former smoker as teen
#Eosinophilic esophagitis
-Continue omeprazole 20 mg daily
#Vitamin D deficiency
-Continue vitamin D3 125 mcg p.o. daily
#B12 deficiency
-Continue vitamin B12 1000 mcg p.o. daily
Other PMH:
Viral meningitis 2008 with post lumbar puncture CSF leak
C5/C6 neck pain
DVT prophylaxis
SCDs
Full code
d/w with spouse at bedside in details.
Anticipated Discharge: Within 24 hours
Subjective/Interval History
-
Date of Service: January 24, 2024
Patient resting in bed comfortably
States of diplopia while looking down
Denies any headache at this point
States of acute vision problems starting yesterday
Objective Data
-
Vital Signs:
Vital Signs
Temp Pulse Resp BP Pulse Ox
97.8 F 68 18 116/66 94
01/24/24 11:47 01/24/24 11:47 01/24/24 11:47 01/24/24 11:47 01/24/24 11:47
I&O
01/23/24 01/24/24 01/25/24
06:59 06:59 06:59
Intake Total 240 / 240
Balance 240 / 240
--- NOTE | 2024-01-24 15:01 | W.PN.NEURO.1 ---
Today's Communication / Plan
-
.
Subjective/Objective
Subjective Data
Date of Service: January 24, 2024
Neurology follow-up note.
Ms. Weldon endorses ongoing diplopia with downward gaze. No reports of headaches, change in strength or sensation.
The patient has been normotensive and afebrile
Brain MRI showed no evidence of acute infarcts and paraspinal disease in addition to volume loss.
Labs: Normal ESR, CRP, TFTs
PMH: astigmatism, history of meningitis(2008, was treated before LP), CSF leak, eosinophilic esophagitis, C5/Z2wjpelqm D and B12 deficiency.
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
FH: Mother�epilepsy
All: Penicillins, cephalosporins, fentanyl, prednisone,
ROS:Constitutional: Negative. Negative for chills, fever and unexpected weight change.
HENT: Negative for ear pain, hearing loss, tinnitus and trouble swallowing.
Eyes: Positive for diplopia
Respiratory: Negative for cough, choking and shortness of breath.
Cardiovascular: Negative for chest pain, palpitations and leg swelling.
Gastrointestinal: Negative for abdominal pain and vomiting.
Endocrine: Negative. Negative for cold intolerance.
Genitourinary: Positive for nocturia
Musculoskeletal: Negative for back pain, gait problem, neck pain and neck stiffness.
Skin: Negative for rash.
Allergic/Immunologic: Negative. Negative for immunocompromised state.
Neurological: Positive for intermittent headaches
Psychiatric/Behavioral: Negative for behavioral problems, confusion and hallucinations.
General: Well developed. In no acute distress.
Cardio: Regular rate and rhythm without murmur. Extremities are without cyanosis or edema.
Neuro:
Mental Status: Alert, oriented to person, place, and date. Expressive aphasia. Unable to do serial sevens. Impaired delayed recall. Good fund of knowledge. Follows complex requests across the midline. Comprehension, naming, and repetition
intact.
Cranial Nerves: Pupils are equally round and reactive to light. EOMs full. No diplopia on downward gaze. visual lujan full to confrontation. No ptosis. No nystagmus. V1-V3 intact to light touch and pinprick bilaterally, symmetric. Face
symmetric. Normal hearing AU. The palate elevated well. SCMs and traps 5/5. Tongue midline. No dysarthria.
Motor: Normal bulk and tone. No pronator or arm drift. Strength 5/5 throughout. No clonus.
Coordination: No dysmetria or tremor.
Gait: deferred
Assessment and Plan:
I. Clinical trochlear nerve palsy. Inconsistent history/exam
II. 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
III. Encephalopathy
-Telemetry monitoring
-Ophthalmology consult
-Outpatient neuropsychological evaluation
-Outpatient neurology follow-up in 2-3 weeks.
I personally reviewed all radiology and labs along with past medical records pertinent to current medical problems. Total time spent in patient care is 37 minutes.
Thank you for allowing us to participate in the care of this patient. Please do not hesitate to contact us with any questions or concerns.
Objective Data
Vital Signs
Temp Pulse Resp BP Pulse Ox
36.6 C 68 18 116/66 94
01/24/24 11:47 01/24/24 11:47 01/24/24 11:47 01/24/24 11:47 01/24/24 11:47
Lab Results
01/23/24 11:52
01/23/24 14:37
Sodium 139 mmol/L (135-145) 01/23/24 14:37
Potassium 3.9 mmol/L (3.5-5.1) 01/23/24 14:37
BUN 8 mg/dl (7-17) 01/23/24 14:37
Glucose 92 mg/dl (70-99) 01/23/24 14:37
Calcium 9.2 mg/dl (8.4-10.2) 01/23/24 14:37
LDL Cholesterol, Calc 134 mg/dl 01/24/24 06:27
Patient Allergies
Cephalosporins Allergy (Severe, Verified 01/23/24 11:37)
Shortness of Breath
penicillin G Allergy (Severe, Verified 01/23/24 11:37)
Shortness of Breath
Penicillins Allergy (Severe, Verified 01/23/24 11:37)
Shortness of Breath
Tetanus Vaccines and Toxoid Allergy (Severe, Verified 01/23/24 11:37)
Swelling
prednisone Allergy (Intermediate, Verified 01/23/24 11:37)
Swelling
fentanyl Allergy (Mild, Verified 01/23/24 11:37)
Unknown
--- NOTE | 2024-01-24 16:35 | CM ---
Patient was admitted under OBS, OBS letter provided, not signed. manager star reviewed patient's chart and met with patient and patient lives with her spouse in a multilevel home, patient is independent with adl's and ambulation, no dme, patient
drives.
PCP: Dr. Rojas
Pharmacy: [facility].
Plan; Home today no needs.
[2024-01-25 03:01] VITALS: BP 121/62
[2024-01-25 07:30] VITALS: BP 137/63
[2024-01-25] MEDS: VITAMIN D3 (cholecalciferol) 125 MCG PO (07:50)
[2024-01-25] MEDS: PROTONIX 40 MG PO (07:50)
[2024-01-25] MEDS: VITAMIN B-12 1000 MCG PO (07:50)
--- NOTE | 2024-01-25 10:52 | W.PN.HOSP.TC ---
Today's Communication/Plan
-
dc home
Assessment / Plan
Assessment / Plan
General: Comfortable and Conversant; No Pain, Fever or Chills
HEENT: NormoCephalic, Anicteric, , [place] Conjunctivae, No Ptosis
Respiratory: Clear; No Wheezes, Rales or Rhonchi
Cardiac: S1/S2; No Regular Rhythm, Murmur, Rub, Gallop, Peripheral Edema or JVD
GI: Soft, Non Tender, Non Distended and Normal Bowel Sounds
Musculoskeletal: No Clubbing, No Cyanosis and No Edema
Skin: Warm and Dry; No Rash
Neuro: AO x 3, No Motor Deficits, Nonfocal/grossly intact, Cranial Nerves Intact and No Sensory Deficits; No Slurred Speech, Facial Droop, Tremors or Sedated
Psych: Calm
#Earlier occipital headache now diplopia concern for ocular migraine
#Hx of headaches 3-4 times a year
#Clinical trochlear nerve palsy low likelihood.
-UA negative. TSH normal. Urine normal. sed rate normal. Mag normal. CRP normal
-Ophthalmology consult-recommend outpatient follow-up
-Brain MRI without gadolinium-patient will require p.o. Ativan due to claustrophobia order placed by neurology
-Tylenol as needed headache
-MRI brain with no evidence of acute intracranial abnormality. Paranasal disease as described.
-probably symptomatic management.
-Discussed with neurologist. Okay for discharge. Outpatient follow-up recommended with neurologist and turbine room attendant.
#Chronic astigmatism-patient unsure which eye
-She wears glasses for readers
#Eosinophilic esophagitis
#Vitamin D deficiency
#B12 deficiency
Other PMH:
Viral meningitis 2008 with post lumbar puncture CSF leak
C5/C6 neck pain
DVT prophylaxis
SCDs
Full code
d/w with spouse at bedside in details on 01/23 and 01/24.
More than 30 minutes spent in discharge including
Final examination of the patient
Summarizing hospital stay
Instructions for continuing care to all relevant caregivers
Preparation of discharge records, prescriptions, and referral forms
Total time spent (in minutes): 53
Anticipated Discharge: Today
Subjective/Interval History
-
Date of Service: January 25, 2024
Denies any problems with vision this morning
Eating breakfast
Patient was tachycardic as she was exercising in the room. Heart rate was elevated with exercise. At baseline normal sinus rhythm heart rate controlled.
Moving all 4 extremities without any difficulty.
Objective Data
-
Vital Signs:
Vital Signs
Temp Pulse Resp BP Pulse Ox
98.2 F 61 20 137/63 95
01/25/24 07:30 01/25/24 07:30 01/25/24 07:30 01/25/24 07:30 01/25/24 07:30
I&O
01/24/24 01/25/24 01/26/24
06:59 06:59 06:59
Intake Total 240 / 240 2280 / 2280
Balance 240 / 240 2280 / 2280
--- NOTE | 2024-01-25 11:00 | W.DCSUMMARY ---
Discharge Summary
Discharge Data
Date of Admission: 01/23/24
Date of Discharge: 01/25/24
-
Pending Results: No
Hospital Course
58 female past medical history of eosinophilic esophagitis, vitamin D and B12 deficiency, history of viral meningitis was presenting with complaint of headache and diplopia. Patient states of diplopia while looking down. Patient was eval by
neurology. Patient underwent MRI of the brain which was negative for acute pathology. Paranasal disease was described. No evidence of acute intracranial abnormality. Patient ESR and CRP within normal limits TSH within normal limits UA was
negative. There was a clinically low suspicion of trochlear nerve palsy. patient has also history of headache. Patient was eval by neurology. Patient symptomology significantly improved and resolved. Patient was exercising in the room.
Discussed case with neurology patient can be discharged. No further testing or medication indicated. Patient was recommended to follow-up outpatient with lottery office manager and neurologist. Recommend to hold driving until seen by primary doctor,
lottery office manager. Patient spouse was updated throughout hospitalization.
Discharge Plan
-
Patient Disposition: Home (Routine Discharge)
Discharge Diagnosis/Procedures: Occipital headache with diplopia with low likelihood of trochlear nerve palsy
Condition: Fair
Diet: Regular
Activity: As tolerated
Driving Restrictions: Not until seen by your Dr
Blood Work: Recommend repeat lipid panel and discuss results with primary doctor
Activity Restrictions/Additional Instructions:
Your cholesterol levels were elevated. Please discuss with your primary doctor for dietary modification and need for medication.
Referrals:
Salinas Olmedo MD [Active] - None (call to make appt)
Rakesh Fernández MD [Active] - in three to four weeks
Aleksandar Rojas DO [Family Provider] - in less than 1 week
Prescriptions:
Continued
cyanocobalamin (vitamin B-12) 1,000 MCG tablet
1,000 mcg PO DAILY
cholecalciferol (vitamin D3) [Vitamin D3] 125 mcg (5,000 unit) Tablet
125 mcg PO DAILY
omeprazole 20 mg Capsule,Delayed Release(Dr/Ec)
20 mg PO DAILY
ondansetron 4 mg Tablet,Disintegrating
4 mg PO Q8HPRN PRN (Reason: nausea)
Discharge Orders:
Discharge Patient (As Directed); Ordered 01/25/24
Ordered By: Celio Hi
Discharge Date and Time
Discharge Date/Time: 01/25/24 13:50
Print Language: PUERT[place] RICAN
[2024-01-25 11:45] VITALS: BP 138/71
--- NOTE | 2024-01-25 11:45 | CM ---
Pt is medically clear for d/c today
Spoke w/ pt bedside w/ spouse. Pt agreeable to d/c today
PT/OT recommend OP therapy possibly. Pt declines needing OP therapy
No CM needs identified at this time
Plan: Home; no needs
== END 2024-01-25 13:50 | disposition home or self-care (01) ==
LOC: 4 WEST ACU 19:57
PROVIDERS: Clinical Nurse Specialist Family Health; Registered Nurse; ADMITTING PHYSICIAN Hospitalist; ATTENDING PHYSICIAN Hospitalist; CONSULT PHYSICIAN Psychiatry & Neurology Neurology; EMERGENCY PHYSICIAN Emergency Medicine; FAMILY PHYSICIAN Family Medicine
DX: R51.9 Headache, unspecified (principal); H53.2 Diplopia; R53.83 Other fatigue; H53.149 Visual discomfort, unspecified; H53.8 Other visual disturbances; G93.40 Encephalopathy, unspecified; M54.9 Dorsalgia, unspecified; G31.9 Degenerative disease of nervous system, unspecified; H52.209 Unspecified astigmatism, unspecified eye; E53.8 Deficiency of other specified B group vitamins; E78.00 Pure hypercholesterolemia, unspecified; K20.0 Eosinophilic esophagitis; E55.9 Vitamin D deficiency, unspecified; Z83.79 Family history of other diseases of the digestive system; Z82.49 Family history of ischemic heart disease and other diseases of the circulatory system; Z88.0 Allergy status to penicillin; Z88.1 Allergy status to other antibiotic agents; Z88.5 Allergy status to narcotic agent; Z88.8 Allergy status to other drugs, medicaments and biological substances; Z87.891 Personal history of nicotine dependence; Z86.61 Personal history of infections of the central nervous system; Z83.49 Family history of other endocrine, nutritional and metabolic diseases; Z80.0 Family history of malignant neoplasm of digestive organs; Z82.3 Family history of stroke; Z88.7 Allergy status to serum and vaccine
CPT/HCPCS: 70450; 70551; 80053; 80061; 83735; 84443; 85025; 85652; 86140; 96374; 96375; 97162; 97166; 99285; G0378

== ENCOUNTER 2024-03-02 06:21 | Day surgery (SDC) | payer BC, SELFPAY | END 2024-03-02 14:15 | disposition home or self-care (01) | LOC: GI 06:21 | PROVIDERS: ATTENDING PHYSICIAN Internal Medicine Gastroenterology | DX: Z12.11 Encounter for screening for malignant neoplasm of colon (principal); K64.0 First degree hemorrhoids; K57.30 Diverticulosis of large intestine without perforation or abscess without bleeding; K20.0 Eosinophilic esophagitis; K22.89 Other specified disease of esophagus; K31.89 Other diseases of stomach and duodenum; K31.A29 Gastric intestinal metaplasia with dysplasia, unspecified; R19.7 Diarrhea, unspecified; D12.0 Benign neoplasm of cecum; D12.2 Benign neoplasm of ascending colon; D12.5 Benign neoplasm of sigmoid colon; K20.80 Other esophagitis without bleeding; K31.A15 Gastric intestinal metaplasia without dysplasia, involving multiple sites; K63.5 Polyp of colon; Z86.0100 Personal history of colon polyps, unspecified; Z80.0 Family history of malignant neoplasm of digestive organs | CPT/HCPCS: 45385; 45380; 43239; 88305; 88342 ==